=== PATIENT | female | born 1995 | race Caucasian/White ===

== ENCOUNTER 2020-12-06 16:11 | Inpatient (IN) | payer BC, OTHER ==
[~2020-12-06] VITALS: Ht 167.6 cm; Wt 102.5 kg
[2020-12-06 16:57] LABS: RED BLOOD COUNT 4.85 M/UL (4.00-5.10); WHITE BLOOD COUNT 10.7 K/UL (4.5-11.0)
[2020-12-06] MEDS ORDERED: PRENATAL VITAM1 EAC3 PO (18:41)
[2020-12-07] MEDS ORDERED: IBUPROFEN800 MG PO (10:07)
[2020-12-07] MEDS ORDERED: TYLENOL EXTRA500 MG PO (10:07)
[2020-12-07] MEDS ORDERED: DOCUSATE SODIU100 MG PO (10:07)
[2020-12-08 05:58] LABS: HEMOGLOBIN 12.2 gm/dl (12.3-15.3)
== END 2020-12-08 19:55 | disposition home or self-care (01) | DRG 807 ==
LOC: GENOP 16:11 → OB 16:30
PROVIDERS: ADMIT Obstetrics & Gynecology
PROC: 10E0XZZ Delivery of Products of Conception, External Approach (ICD-10-PCS; principal; 2020-12-06)
PROC: 0KQM0ZZ Repair Perineum Muscle, Open Approach (ICD-10-PCS; 2020-12-06)
PROC: 0U7C7ZZ Dilation of Cervix, Via Natural or Artificial Opening (ICD-10-PCS; 2020-12-06)
DX: O99.214 Obesity complicating childbirth (principal); Z37.0 Single live birth; E66.9 Obesity, unspecified; Z3A.39 39 weeks gestation of pregnancy; O69.81X0 Labor and delivery complicated by cord around neck, without compression, not applicable or unspecified; O70.1 Second degree perineal laceration during delivery
CPT/HCPCS: 36415; 51702; 81001; 82800; 85014; 85018; 85025; 90471; 90715; J0595; J2001; J2590; J2795; J7120; U0003